=== PATIENT | female | born 1980 | race Caucasian/White ===

== ENCOUNTER → 2018-07-20 | Outpatient (CLI) | payer BC ==
--- NOTE | 2018-07-21 11:04 | MM ---
Reason for exam: screening (asymptomatic). Last mammogram was performed 2 years and 2 months ago. History: Family history of breast cancer in paternal aunt. Physical Findings: A clinical breast exam by your physician is recommended on an annual basis and results should be correlated with mammographic findings. MG Screening Mammo w CAD Bilateral CC and MLO view(s) were taken. Prior study comparison: May 13, 2016, bilateral MG screening mammo w CAD. August 17, 2014, bilateral MG diagnostic mammo w CAD [place]. The breast tissue is extremely dense which could obscure a lesion on mammography. There are benign appearing round calcifications bilaterally. No suspicious abnormality. No significant changes when compared with prior studies. ASSESSMENT: Benign, BI-RAD 2 RECOMMENDATION: Routine screening mammogram of both breasts in 1 year.
== END | disposition home or self-care (01) ==
LOC: RADMAMWWP 10:06
PROVIDERS: ATTEND Obstetrics & Gynecology
DX: Z12.31 Encounter for screening mammogram for malignant neoplasm of breast (principal)
CPT/HCPCS: 77067

== ENCOUNTER → 2020-04-05 | Outpatient (CLI) | payer BC ==
--- NOTE | 2020-04-09 08:31 | MM ---
Reason for exam: screening (asymptomatic). Last mammogram was performed 1 year and 9 months ago. History: Family history of breast cancer in paternal aunt. Physical Findings: A clinical breast exam by your physician is recommended on an annual basis and results should be correlated with mammographic findings. MG 3D Screening Mammo W/Cad Bilateral CC and MLO view(s) were taken. Prior study comparison: July 20, 2018, bilateral MG screening mammo w CAD. May 13, 2016, bilateral MG screening mammo w CAD. The breast tissue is heterogeneously dense. This may lower the sensitivity of mammography. No significant changes when compared with prior studies. ASSESSMENT: Benign, BI-RAD 2 RECOMMENDATION: Routine screening mammogram of both breasts in 1 year.
== END | disposition home or self-care (01) ==
LOC: RADMAMWWP 14:49
PROVIDERS: ATTEND Obstetrics & Gynecology
DX: Z12.31 Encounter for screening mammogram for malignant neoplasm of breast (principal)
CPT/HCPCS: 77063; 77067

== ENCOUNTER → 2021-04-10 | Outpatient (CLI) | payer BC ==
--- NOTE | 2021-04-14 15:18 | MM ---
Reason for exam: screening (asymptomatic). Last mammogram was performed 1 year ago. History: Family history of breast cancer in paternal aunt. Took hormonal contraceptives for 5 years. Physical Findings: A clinical breast exam by your physician is recommended on an annual basis and results should be correlated with mammographic findings. MG 3D Screening Mammo W/Cad Bilateral CC and MLO view(s) were taken. Prior study comparison: April 05, 2020, bilateral MG 3d screening mammo w/cad. July 20, 2018, bilateral MG screening mammo w CAD. The breast tissue is heterogeneously dense. This may lower the sensitivity of mammography. Scattered regional and diffuse punctate calcifications redemonstrated. Benign oil cyst calcifications left 12 o'clock. No significant changes when compared with prior studies. ASSESSMENT: Benign, BI-RAD 2 RECOMMENDATION: Routine screening mammogram of both breasts in 1 year. Patient should continue monthly self breast exams. A negative report should not preclude additional follow up of suspicious palpable abnormalities.
== END | disposition home or self-care (01) ==
LOC: RADMAMWWP 08:36
PROVIDERS: ATTEND Obstetrics & Gynecology
DX: Z12.31 Encounter for screening mammogram for malignant neoplasm of breast (principal); Z80.3 Family history of malignant neoplasm of breast; Z79.3 Long term (current) use of hormonal contraceptives
CPT/HCPCS: 77063; 77067

== ENCOUNTER → 2021-12-23 | Outpatient (CLI) | payer BC ==
--- NOTE | 2021-12-23 12:27 | XR ---
EXAMINATION TYPE: XR knee limited RT DATE OF EXAM: 12/23/2021 COMPARISON: NONE HISTORY: Pain TECHNIQUE: Two views are submitted. FINDINGS: Joint spaces are preserved. Osseous structures are intact. No acute fracture seen. Diffuse osteope ludwin IMPRESSION: 1. No acute fracture or dislocation.
== END | disposition home or self-care (01) ==
LOC: RADXRYALE 11:58
PROVIDERS: ATTEND Internal Medicine
DX: M25.562 Pain in left knee (principal)

== ENCOUNTER → 2022-04-17 | Outpatient (CLI) | payer BC ==
--- NOTE | 2022-04-20 09:30 | MM ---
Reason for Exam: Screening (asymptomatic). Last screening mammogram was performed 12 month(s) ago. Patient History: Menarche at age 14. First Full-Term at age 26. Patient used Hormonal Contraceptives for 5 years. Paternal aunt had breast cancer, age 60. Last menstrual period: 04/10/2022 Risk Values: Kiley 5 year model risk: 0.8%. NCI Lifetime model risk: 9.8%. Prior Study Comparison: 07/20/2018 Bilateral Screening Mammogram, [facility]. 04/05/2020 Bilateral Screening Mammogram, [facility]. 04/10/2021 Bilateral Screening Mammogram, [facility]. Tissue Density: The breast tissue is heterogeneously dense. This may lower the sensitivity of mammography. Findings: Analyzed By CAD. There is no suspicious group of microcalcifications or new suspicious mass in either breast. Stable benign calcifications seen bilaterally. Overall Assessment: Benign, BI-RAD 2 Management: Screening Mammogram of both breasts in 1 year. A clinical breast exam by your physician is recommended on an annual basis and results should be correlated with mammographic findings. Electronically signed and approved by: Ismael Montelongo M.D. Radiologis
== END | disposition home or self-care (01) ==
LOC: RADMAMWWP 08:15
PROVIDERS: ATTEND Obstetrics & Gynecology
DX: Z12.31 Encounter for screening mammogram for malignant neoplasm of breast (principal); R92.1 Mammographic calcification found on diagnostic imaging of breast; Z80.3 Family history of malignant neoplasm of breast
CPT/HCPCS: 77063; 77067

== ENCOUNTER → 2023-05-03 | Outpatient (CLI) | payer BC ==
--- NOTE | 2023-05-04 08:51 | MM ---
Reason for Exam: Screening (asymptomatic). Last screening mammogram was performed 12 month(s) ago. Patient History: Menarche at age 14. First Full-Term at age 26. Patient has history of breast feeding. Currently using Hormonal Contraceptives, for 5 years. Paternal aunt had breast cancer, age 60. Risk Values: Kiley 5 year model risk: 0.8%. NCI Lifetime model risk: 9.7%. Prior Study Comparison: 04/05/2020 Bilateral Screening Mammogram, [facility]. 04/10/2021 Bilateral Screening Mammogram, [facility]. 04/17/2022 Bilateral MG 3D screening mammo w/cad, [facility]. Tissue Density: The breast tissue is extremely dense which could obscure a lesion on mammography. Findings: Analyzed By CAD. There is no suspicious group of microcalcifications or new suspicious mass in either breast. Stable benign calcification seen bilaterally. Overall Assessment: Benign, BI-RAD 2 Management: Screening Mammogram of both breasts in 1 year. A clinical breast exam by your physician is recommended on an annual basis and results should be correlated with mammographic findings. Note on Kiley scores and lifetime risk: 1. A Kiley score greater than 3% is considered moderate risk. If this is the case, consider specialist referral to assess eligibility for a risk reducing agent. If overall lifetime risk for the development of breast cancer is 20% or higher, the patient may qualify for future screening with alternating mammogram and breast MRI. Electronically signed and approved by: Clayton Thompson D.O.
== END | disposition home or self-care (01) ==
LOC: RADMAMWWP 10:46
PROVIDERS: ATTEND Obstetrics & Gynecology
DX: Z12.31 Encounter for screening mammogram for malignant neoplasm of breast (principal); Z80.3 Family history of malignant neoplasm of breast
CPT/HCPCS: 77063; 77067

== ENCOUNTER → 2024-06-09 | Outpatient (CLI) | payer BC ==
--- NOTE | 2024-06-11 12:01 | MM ---
Reason for Exam: Screening (asymptomatic). Last mammogram was performed 1 year(s) and 2 month(s) ago. Patient History: Menarche at age 14. First Full-Term at age 26. Patient has history of breast feeding. Currently using Hormonal Contraceptives, for 5 years. Paternal aunt had breast cancer, age 60. Risk Values: Kiley 5 year model risk: 0.9%. NCI Lifetime model risk: 9.6%. Prior Study Comparison: 04/10/2021 Bilateral Screening Mammogram, [facility]. 04/17/2022 Bilateral MG 3D screening mammo w/cad, [facility]. 05/03/2023 Bilateral MG 3D screening mammo w/cad, [facility]. Tissue Density: The breasts are heterogeneously dense, which may obscure small masses. Findings: Analyzed By CAD. Right breast: There is no suspicious group of microcalcifications or new suspicious mass. Left breast: There is no suspicious group of microcalcifications or new suspicious mass. Overall Assessment: Negative, BI-RAD 1 Management: Screening Mammogram of both breasts in [address] [facility] will attempt to contact patient to return for supplemental views and ultrasound if indicated. Patient should continue monthly self-breast exams. A clinical breast exam by your physician is recommended on an annual basis. This exam should not preclude additional follow-up of suspicious palpable abnormalities. Note on Kiley scores and lifetime risk: 1. A Kiley score greater than 3% is considered moderate risk. If this is the case, consider specialist referral to assess eligibility for a risk reducing agent. 2. If overall lifetime risk for the development of breast cancer is 20% or higher, the patient may qualify for future screening with alternating mammogram and breast MRI. Electronically signed and approved by: Glenn Vera DO
== END | disposition home or self-care (01) ==
LOC: RADMAMWWP 08:28
PROVIDERS: ATTEND Obstetrics & Gynecology
DX: Z12.31 Encounter for screening mammogram for malignant neoplasm of breast
CPT/HCPCS: 77063; 77067

== ENCOUNTER 2024-08-24 01:43 | Observation (INO) | payer BC ==
--- NOTE | 2024-08-24 02:05 | ED ---
URI HPI - General Chief Complaint: Upper Respiratory Infection Stated Complaint: SOB Time Seen by Provider: 08/24/24 02:03 Source: patient, RN notes reviewed Mode of arrival: ambulatory Limitations: no limitations - History of Present Illness Initial Comments: 44-year-old female presenting to the ER with chief complaint of cough x 4 days with associated nasal congestion and fever. Patient was seen at urgent care 4 days ago where they diagnosed her with an upper respiratory infection and started her on Augmentin and steroids. Patient reports cough has worsened and become more productive. Patient states she is short of breath when she coughs and feels "rundown". Denies cardiac or pulmonary history. She is a non-smoker. - Related Data Allergies Allergy/AdvReac Type Severity Reaction Status Date / Time No Known Allergies Allergy Verified 08/24/24 01:52 Review of Systems ROS Statement: Those systems with pertinent positive or pertinent negative responses have been documented in the HPI. ROS Other: All systems not noted in ROS Statement are negative. Past Medical History Past Medical History: Thyroid Disorder History of Any Multi-Drug Resistant Organisms: None Reported Past Surgical History: No Surgical Hx Reported Past Psychological History: No Psychological Hx Reported Smoking Status: Never smoker Past Alcohol Use History: None Reported Past Drug Use History: None Reported General Exam Limitations: no limitations General appearance: alert, in no apparent distress Head exam: Present: atraumatic, normocephalic, normal inspection ENT exam: Present: normal exam, normal oropharynx, mucous membranes moist Neck exam: Present: normal inspection. Absent: tenderness, meningismus, lymphad enopathy Respiratory exam: Present: normal lung sounds bilaterally. Absent: respiratory distress, wheezes, rales, rhonchi, stridor Cardiovascular Exam: Present: regular rate, normal rhythm, normal heart sounds. Absent: systolic murmur, diastolic murmur, rubs, gallop, clicks Neurological exam: Present: alert, oriented X3 Psychiatric exam: Present: normal affect, normal mood Skin exam: Present: warm, dry, intact, normal color. Absent: rash Course Vital Signs 08/24/24 08/24/24 08/24/24 01:48 01:56 03:12 Temperature 100.6 F H 98.6 F Pulse Rate 101 H 98 Respiratory 20 20 20 Rate Blood Pressure 118/78 119/78 O2 Sat by Pulse 93 L 96 Oximetry Medical Decision Making - Medical Decision Making Was pt. sent in by a medical professional or institution (ALEXUS Akers, BINDER TECHNICIAN, urgent care, hospital, or [facility]...) When possible be specific @ -No Did you speak to anyone other than the patient for history (EMS, parent, family, police, friend...)? What history was obtained from this source @ -No Did you review nursing and triage notes (agree or disagree)? Why? @ -I reviewed and agree with nursing and triage notes Were old charts reviewed (outside hosp., previous admission, EMS record, old EKG, old radiological studies, urgent care reports/EKG's, [facility] records)? Report findings @ -No old charts were reviewed Differential Diagnosis (chest pain, altered mental status, abdominal pain women, abdominal pain men, vaginal bleeding, weakness, fever, dyspnea, syncope, headache, dizziness, GI bleed, back pain, seizure, CVA, palpatations, mental health, musculoskeletal)? @ -Viral URI, COVID, influenza, pneumonia, bronchitis, sepsis EKG interpreted by me (3pts min.). @ -None X-rays interpreted by me (1pt min.). @ -X-ray reveals acute right lower lobe pneumonic infiltrate CT interpreted by me (1pt min.). @ -None done U/S interpreted by me (1pt. min.). @ -None done What testing was considered but not performed or refused? (CT, X-rays, U/S, labs)? Why? @ -None What meds were considered but not given or refused? Why? @ -None Did you discuss the management of the patient with other professionals (professionals i.e. ALEXUS Akers, BINDER TECHNICIAN, lab, RT, psych nurse, clinical social work aide, manager pe, teacher, complaint investigations officer, vocational case manager)? Give summary @ -No Was smoking cessation discussed for >3mins.? @ -No Was critical care preformed (if so, how long)? @ -No Were there social determinants of health that impacted care today? How? (Homelessness, low income, unemployed, alcoholism, drug addiction, transportation, low edu. Level, literacy, decrease access to med. care, skilled nursing, rehab)? @ -No Was there de-escalation of care discussed even if they declined (Discuss DNR or withdrawal of care, Hospice)? DNR status @ -No What co-morbidities impacted this encounter? (DM, HTN, Smoking, COPD, CAD, Cancer, CVA, ARF, Chemo, Hep., AIDS, mental health diagnosis, sleep apnea, morbid obesity)? @ -None Was patient admitted / discharged? Hospital course, mention meds given and route, prescriptions, significant lab abnormalities, going to OR and other pertinent info. @ -Admitted. This is a 44-year-old female presenting to the ER chief complaint of cough x 4 days with associated nasal congestion and fever. Patient has been taking Augmentin and steroids for 4 days with worsening symptoms. Patient is febrile at 100.6 F, tachycardic at 101 bpm, satting 93% on room air. No sign of respiratory distress. Patient was given ibuprofen for fever. Patient is negative for COVID, influenza, and RSV. Chest x-ray reveals acute right lower lobe pneumonic infiltrate. Lab work including CBC, CMP, lactic acid unremarkable. White blood cell count stable at 7.9. Discussed results with patient. Patient will be admitted for pneumonia with failed outpatient treatment. Patient is agreeable to this plan. Patient is started on IV fluids, IV Rocephin, and IV azithromycin. Case was discussed with my ED attending Dr. Carroll. Undiagnosed new problem with uncertain prognosis? @ -No Drug Therapy requiring intensive monitoring for toxicity (Heparin, Nitro, Insulin, Cardizem)? @ -No Were any procedures done? @ -No Diagnosis/symptom? @ -Pneumonia with failed outpatient treatment Acute, or Chronic, or Acute on Chronic? @ -Acute Uncomplicated (without systemic symptoms) or Complicated (systemic symptoms)? @ -Complicated Side effects of treatment? @ -No Exacerbation, Progression, or Severe Exacerbation? @ -No Poses a threat to life or bodily function? How? (Chest pain, [place], [place], pneumonia, PE, COPD, DKA, ARF, appy, cholecystitis, CVA, Diverticulitis, Homicidal, Suicidal, threat to staff... and all critical care pts) @ -Yes, pneumonia - Lab Data Result diagrams: 08/24/24 02:35 08/24/24 02:35 Lab Results 08/24/24 08/24/24 08/24/24 Range/Units 02:03 02:35 02:35 WBC 7.9 (3.8-10.6) k/uL RBC 4.58 (3.80-5.40) m/uL Hgb 14.0 (11.4-16.0) gm/dL Hct 42.3 (34.0-46.0) % MCV 92.5 (80.0-100.0) fL MCH 30.6 (25.0-35.0) pg MCHC 33.1 (31.0-37.0) g/dL RDW 12.0 (11.5-15.5) % Plt Count 299 (150-450) k/uL MPV 7.8 Neutrophils % 83 % Lymphocytes % 10 % Monocytes % 5 % Eosinophils % 1 % Basophils % 0 % Neutrophils # 6.5 (1.3-7.7) k/uL Lymphocytes # 0.8 L (1.0-4.8) k/uL Monocytes # 0.4 (0-1.0) k/uL Eosinophils # 0.1 (0-0.7) k/uL Basophils # 0.0 (0-0.2) k/uL Sodium 137 (137-145) mmol/L Potassium 3.8 (3.5-5.1) mmol/L Chloride 100 (98-107) mmol/L Carbon Dioxide 31 H (22-30) mmol/L Anion Gap 6 mmol/L BUN 8 (7-17) mg/dL Creatinine 0.68 (0.52-1.04) mg/dL Est GFR (CKD-EPI)AfAm >90 (>60 ml/min/1.73 sqM) Est GFR (CKD-EPI)NonAf >90 (>60 ml/min/1.73 sqM) Glucose 111 H (74-99) mg/dL Plasma Lactic Acid Keith (0.7-2.0) mmol/L Calcium 9.0 (8.4-10.2) mg/dL Total Bilirubin 0.3 (0.2-1.3) mg/dL AST 35 (14-36) U/L ALT 52 H (4-34) U/L Alkaline Phosphatase 54 (38-126) U/L Total Protein 7.2 (6.3-8.2) g/dL Albumin 4.1 (3.5-5.0) g/dL Influenza Type A (PCR) Not Detected (Not Detectd) Influenza Type B (PCR) Not Detected (Not Detectd) RSV (PCR) Not Detected (Not Detectd) SARS-CoV-2 (PCR) Not Detected (Not Detectd) 08/24/24 Range/Units 02:35 WBC (3.8-10.6) k/uL RBC (3.80-5.40) m/uL Hgb (11.4-16.0) gm/dL Hct (34.0-46.0) % MCV (80.0-100.0) fL MCH (25.0-35.0) pg MCHC (31.0-37.0) g/dL RDW (11.5-15.5) % Plt Count (150-450) k/uL MPV Neutrophils % % Lymphocytes % % Monocytes % % Eosinophils % % Basophils % % Neutrophils # (1.3-7.7) k/uL Lymphocytes # (1.0-4.8) k/uL Monocytes # (0-1.0) k/uL Eosinophils # (0-0.7) k/uL Basophils # (0-0.2) k/uL Sodium (137-145) mmol/L Potassium (3.5-5.1) mmol/L Chloride (98-107) mmol/L Carbon Dioxide (22-30) mmol/L Anion Gap mmol/L BUN (7-17) mg/dL Creatinine (0.52-1.04) mg/dL Est GFR (CKD-EPI)AfAm (>60 ml/min/1.73 sqM) Est GFR (CKD-EPI)NonAf (>60 ml/min/1.73 sqM) Glucose (74-99) mg/dL Plasma Lactic Acid Keith 1.4 (0.7-2.0) mmol/L Calcium (8.4-10.2) mg/dL Total Bilirubin (0.2-1.3) mg/dL AST (14-36) U/L ALT (4-34) U/L Alkaline Phosphatase (38-126) U/L Total Protein (6.3-8.2) g/dL Albumin (3.5-5.0) g/dL Influenza Type A (PCR) (Not Detectd) Influenza Type B (PCR) (Not Detectd) RSV (PCR) (Not Detectd) SARS-CoV-2 (PCR) (Not Detectd) Disposition Clinical Impression: Pneumonia Disposition: ADMITTED IP TO THIS HOSP Referrals: Dacia Childress MD [Primary Care Provider] - 1-2 days Time of Disposition: 03:30
[2024-08-24] MEDS: IBUPROFEN 600 MG TAB PO STA (02:06)
--- NOTE | 2024-08-24 02:21 | XR ---
EXAMINATION TYPE: XR chest 2V DATE OF EXAM: 08/24/2024 CLINICAL HISTORY: Cough and fever. TECHNIQUE: Frontal and lateral views of the chest are obtained. COMPARISON: None FINDINGS: There is right lower lobe increased opacity on both views. Left lung is clear. The cardia c silhouette size is within normal limits. The osseous structures are intact. IMPRESSION: Right lower lobe acute pneumonic infiltrate. [facility], , 08/24/2024 2:18 AM
[2024-08-24 02:40] LABS: Basophils % (A) 0 %; Eosinophils # (A) 0.1 k/uL (0-0.7); Eosinophils % (A) 1 %; HCT 42.3 % (34.0-46.0); Lymphocytes # (A) 0.8 k/uL (1.0-4.8); Lymphocytes % (A) 10 %; MCH 30.6 pg (25.0-35.0); MCHC 33.1 g/dL (31.0-37.0); MCV 92.5 fL (80.0-100.0); Mean Platelet Volume 7.8; Monocytes # (A) 0.4 k/uL (0-1.0); Monocytes % (A) 5 %; Neutrophils # (A) 6.5 k/uL (1.3-7.7); Neutrophils % (A) 83 %; Platelet Count 299 k/uL (150-450); RBC 4.58 m/uL (3.80-5.40); WBC 7.9 k/uL (3.8-10.6)
[2024-08-24 02:51] LABS: ALT 52 U/L (4-34); AST 35 U/L (14-36); African American GFR (CKD) >90 (>60 ml/min/1.73 sqM); Albumin 4.1 g/dL (3.5-5.0); Alkaline Phosphatase 54 U/L (38-126); Anion Gap 6 mmol/L; Blood Urea Nitrogen 8 mg/dL (7-17); Carbon Dioxide 31 mmol/L (22-30); Chloride 100 mmol/L (98-107); Glucose 111 mg/dL (74-99); Non-African American GFR(CKD) >90 (>60 ml/min/1.73 sqM); Potassium 3.8 mmol/L (3.5-5.1); Sodium 137 mmol/L (137-145); Total Bilirubin 0.3 mg/dL (0.2-1.3); Total Protein 7.2 g/dL (6.3-8.2)
[2024-08-24] MEDS ORDERED: PNEUMONIA PROTOCOL UTILIZED 1 EACH MISC PO PRN (03:20)
[2024-08-24] MEDS ORDERED: IBUPROFEN 400 MG TAB PO PRN (03:24)
[2024-08-24] MEDS ORDERED: ACETAMINOPHEN TAB 325 MG TAB PO PRN (03:24)
[2024-08-24] MEDS: SODIUM CHLORIDE 0.9% 1,000 ML IV SCH ×2 (03:46→10:44)
[2024-08-24] MEDS: AZITHROMYCIN 500 MG in SODIUM CHLORIDE 0.9% 250 ML IVPB STA (03:55)
[2024-08-24] MEDS ORDERED: BENZONATATE 100 MG CAP PO PRN (10:16)
[2024-08-24] MEDS: LEVOTHYROXINE 25 MCG TAB PO SCH (10:41)
[2024-08-24] MEDS: methylPREDNISolone SOD SUCCI 40 MG/ML 1 ML VIAL IV SCH (10:55)
--- NOTE | 2024-08-24 15:14 | P.HPIM ---
History of Present Illness H&P Date: 08/24/24 This is a pleasant 44-year-old female with medical history of hypothyroidism. Patient comes in for a 2-week history of upper respiratory infection with cough congestion. Having nausea, fatigue, decreased appetite. States her kids have been sick as well. She is at the urgent care 5 days ago received a course of oral Augmentin and oral prednisone taper. She completed 5 days of Augmentin and states that she was continued to worsen came into the hospital for further evaluation. Chest xray reveals right lower lobe acute pneumonic infiltrate. Viral panel was negative for influenza RSV and COVID. White blood cell count 7.9. Patient was started empirically on IV ceftriaxone and oral azithromycin with pulmonary consultation. REVIEW OF SYSTEMS: CONSTITUTIONAL: No fever, no malaise, no fatigue. HEENT: No recent visual problems or hearing problems. Denied any sore throat. CARDIOVASCULAR: No chest pain, orthopnea, PND, no palpitations, no syncope. PULMONARY: No shortness of breath, no cough, no hemoptysis. GASTROINTESTINAL: No diarrhea, no nausea, no vomiting, no abdominal pain. NEUROLOGICAL: No headaches, no weakness, no numbness. HEMATOLOGICAL: Denies any bleeding or petechiae. GENITOURINARY: Denies any burning micturition, frequency, or urgency. MUSCULOSKELETAL/RHEUMATOLOGICAL: Denies any joint pain, swelling, or any muscle pain. ENDOCRINE: Denies any polyuria or polydipsia. The rest of the 14-point review of systems is negative. PHYSICAL EXAMINATION: GENERAL: The patient is alert and oriented x3, not in any acute distress. Well developed, well nourished. HEENT: Pupils are round and equally reacting to light. EOMI. No scleral icterus. No conjunctival pallor. Normocephalic, atraumatic. No pharyngeal erythema. No thyromegaly. CARDIOVASCULAR: S1 and S2 present. No murmurs, rubs, or gallops. PULMONARY: Chest is clear to auscultation, no wheezing or crackles. ABDOMEN: Soft, nontender, nondistended, normoactive bowel sounds. No palpable organomegaly. MUSCULOSKELETAL: No joint swelling or deformity. EXTREMITIES: No cyanosis, clubbing, or pedal edema. NEUROLOGICAL: Gross neurological examination did not reveal any focal deficits. SKIN: No rashes. Assessment and Plan Right lung pneumonia failed outpatient therapy likely community-acquired. On IV ceftriaxone oral azithromycin and IV Solu-Medrol. Pending a procalcitonin level. Hypothyroidism resumed on levothyroxine GI prophylaxis The impression and plan of care has been dictated by Arlin Varma, Nurse Practitioner as directed. Dr. Erick MD I have performed a history and physical examination and medical decision making of this patient, discussed the same with the dictator, and agree with the dictators assessment and plan as written, documented as a scribe. Based on total visit time, I have performed more than 50% of this visit. Past Medical History Past Medical History: Thyroid Disorder History of Any Multi-Drug Resistant Organisms: None Reported Past Surgical History: No Surgical Hx Reported Past Psychological History: No Psychological Hx Reported Smoking Status: Never smoker Past Alcohol Use History: None Reported Past Drug Use History: None Reported Medications and Allergies Home Medications Medication Instructions Recorded Confirmed Type Amoxic-Pot Clav 875-125Mg 1 tab PO Q12HR 08/24/24 08/24/24 History [Augmentin 875-125] Benzonatate [Tessalon Perle] 200 mg PO TID PRN 08/24/24 08/24/24 History Levothyroxine Sodium [Synthroid] 25 mcg PO DAILY 08/24/24 08/24/24 History methylPREDNISolone Dose Pack 4 mg PO DIRECTED 08/24/24 08/24/24 History [Medrol Dose Pack] norethindrone-e.estradioL-iron 1 tab PO DAILY 08/24/24 08/24/24 History [Aurovela 24 Fe 1 mg-20 Mcg Tab] Allergies Allergy/AdvReac Type Severity Reaction Status Date / Time No Known Allergies Allergy Verified 08/24/24 07:56 Physical Exam Vitals: Vital Signs Temp Pulse Resp BP Pulse Ox 08/24/24 09:03 98.1 F 78 18 107/65 96 08/24/24 06:39 97.9 F 73 20 104/67 97 08/24/24 03:12 98.6 F 98 20 119/78 96 08/24/24 01:56 20 08/24/24 01:48 100.6 F H 101 H 20 118/78 93 L Intake and Output 08/23/24 08/24/24 08/24/24 22:59 06:59 14:59 Other: Weight 57.606 kg Results CBC & Chem 7: 08/24/24 02:35 08/24/24 02:35 Labs: Abnormal Lab Results - Last 24 Hours (Table) 08/24/24 08/24/24 Range/Units 02:35 02:35 Lymphocytes # 0.8 L (1.0-4.8) k/uL Carbon Dioxide 31 H (22-30) mmol/L Glucose 111 H (74-99) mg/dL ALT 52 H (4-34) U/L Assessment and Plan Time with Patient: Less than 30
[2024-08-24 19:38] VITALS: RESP 17
[2024-08-25 07:16] VITALS: BP 99/63; PULSE 76; TEMP 98
[2024-08-25] MEDS: NORETHINDRONE E ESTRADIOL IRON PO SCH (09:01)
--- NOTE | 2024-08-26 14:19 | P.DS ---
Providers Date of admission: 08/24/24 04:26 Attending physician: Ellis Michel Primary care physician: Dacia Childress Hospital Course: Final Diagnosis Right lung pneumonia failed outpatient therapy likely community-acquired. Hypothyroidism Discharge Disposition Patient stable for discharge home she is saturating well on room air. She has been afebrile now for the last 48 hours. She will continue a short course of antibiotics and steroids and inhalers on discharge. Hospital Course This is a pleasant 44-year-old female with medical history of hypothyroidism. Patient comes in for a 2-week history of upper respiratory infection with cough congestion. Having nausea, fatigue, decreased appetite. States her kids have been sick as well. She is at the urgent care 5 days ago received a course of oral Augmentin and oral prednisone taper. She completed 5 days of Augmentin and states that she was continued to worsen came into the hospital for further evaluation. Chest xray reveals right lower lobe acute pneumonic infiltrate. Viral panel was negative for influenza RSV and COVID. White blood cell count 7.9. Patient was started empirically on IV ceftriaxone and oral azithromycin with pulmonary consultation. Patient significantly improved overnight with a ntibiotic therapy. Although her procalcitonin level was within normal limits due to the clinical improvement we will continue a short course on discharge. She will also complete a prednisone burst as well as supportive care with cough medicine. She is continue to encourage to use incentive spirometer 10 times an hour while awake. She is not cleared for discharge home. Please see medication reconciliation for a list of current medications. Thank you for allowing us to participate in the care of this patient. The impression and plan of care has been dictated by Nurse Birgit Flowers titioner as directed. Dr. Erick MD I have performed a history and physical examination and medical decision making of this patient, discussed the same with the dictator, and agree with the dictators assessment and plan as written, documented as a scribe. Based on total visit time, I have performed more than 50% of this visit. Patient Condition at Discharge: Stable Plan - Discharge Summary Discharge Rx Participant: No New Discharge Prescriptions: New guaiFENesin-Coden 100-10MG/5ML [Robitussin AC] 5 ml PO Q8H PRN 4 Days #60 ml PRN Reason: Cough cefuroxime axetiL [Ceftin] 500 mg PO BID 5 Days #10 tab predniSONE [Deltasone] 40 mg PO DAILY #8 tab Ipratropium-Albuterol Nebulize [Duoneb 0.5 mg-3 mg/3 ml Soln] 3 ml INHALATION Q6H PRN #90 ml PRN Reason: Shortness Of Breath Or Wheezing Budesonide/Formoterol Fumarate [Symbicort 80-4.5 Mcg Inhaler] 1 puff INHALATION BID #10.2 gm Continue norethindrone-e.estradioL-iron [Aurovela 24 Fe 1 mg-20 Mcg Tab] 1 tab PO DAILY Levothyroxine Sodium [Synthroid] 25 mcg PO DAILY Benzonatate [Tessalon Perle] 200 mg PO TID PRN PRN Reason: Cough Discontinued methylPREDNISolone Dose Pack [Medrol Dose Pack] 4 mg PO DIRECTED Amoxic-Pot Clav 875-125Mg [Augmentin 875-125] 1 tab PO Q12HR Discharge Medication List Benzonatate [Tessalon Perle] 200 mg PO TID PRN 08/24/24 [History] Levothyroxine Sodium [Synthroid] 25 mcg PO DAILY 08/24/24 [History] norethindrone-e.estradioL-iron [Aurovela 24 Fe 1 mg-20 Mcg Tab] 1 tab PO DAILY 08/24/24 [History] Budesonide/Formoterol Fumarate [Symbicort 80-4.5 Mcg Inhaler] 1 puff INHALATION BID #10.2 gm 08/25/24 [Rx] Ipratropium-Albuterol Nebulize [Duoneb 0.5 mg-3 mg/3 ml Soln] 3 ml INHALATION Q6H PRN #90 ml 08/25/24 [Rx] cefuroxime axetiL [Ceftin] 500 mg PO BID 5 Days #10 tab 08/25/24 [Rx] guaiFENesin-Coden 100-10MG/5ML [Robitussin AC] 5 ml PO Q8H PRN 4 Days #60 ml 08/25/24 [Rx] predniSONE [Deltasone] 40 mg PO DAILY #8 tab 08/25/24 [Rx] Follow up Appointment(s)/Referral(s): Dacia Childrses MD [Primary Care Provider] - 1-2 days Activity/Diet/Wound Care/Special Instructions: Continue prednisone 40 mg daily for the next 4 days Continue oral ceftin for the next 3 to 5 days Continue symbicort inhaler twice a day for the next week Duonebs as needed through the nebulizer Continue incentive spirometer 10 x an hour Continue to increase fluid intake Supportive care Follow up with Dr. Childress in the next 1 to 2 days Discharge/Stand Alone Forms: Work/Release Restrictions Form Discharge Disposition: HOME SELF-CARE
== END 2024-08-25 12:02 | disposition home or self-care (01) ==
LOC: EC 01:43 → 6NMEDSUR 04:26
PROVIDERS: ADMIT Hospitalist; ATTEND Hospitalist
DX: J18.9 Pneumonia, unspecified organism (principal); E03.9 Hypothyroidism, unspecified; Z79.890 Hormone replacement therapy; Z79.3 Long term (current) use of hormonal contraceptives; Z11.59 Encounter for screening for other viral diseases; Z11.52 Encounter for screening for COVID-19
CPT/HCPCS: 96376 ×2; 96361 ×3; 96365; 96366; 96367; 96375; 99284; 36415; 80053; 83605; 85025; 87040; 84145; 87636; 71046; G0378 ×2; J0456; J0696 ×2; J2919 ×2